=== PATIENT | female | born 2000 | race Caucasian/White ===

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

== ENCOUNTER 2019-08-12 14:25 | Observation (INO) | END 2019-08-12 15:50 | disposition home or self-care (01) | LOC: 1NENULAB | PROVIDERS: ADMIT Registered Nurse; ATTEND Registered Nurse ==

== ENCOUNTER → 2019-12-01 08:05 | Observation (INO) | END | disposition home or self-care (01) | LOC: 1NENULAB | PROVIDERS: ADMIT Obstetrics & Gynecology; ATTEND Obstetrics & Gynecology ==

== ENCOUNTER 2019-12-11 21:14 | Inpatient (IN) ==
[~2019-12-11 21:14] MED LIST changes: +*HR* FentaNYL (PF) 100 MCG/2 ML VIAL IVP PRN; -Betamethasone Acet/SodPhos 6 MG/ML MDV IM SCH; +Famotidine 20 MG/2 ML VIAL IVP PRN; +Lidocaine 1% 20 ML MDV INFILT PRN; +Metoclopramide 10 MG/2 ML VIAL IVP PRN; +Naloxone 0.4 MG/ML INJ IVP PRN; +Ondansetron 4 MG/2 ML VIAL IVP PRN; -Ringers Solution, Lactated 1,000 ML IVC SCH; +Ringers Solution, Lactated 1,000 ML ONE; -Ringers Solution, Lactated 500 ML IVC ONE
[2019-12-11] MEDS ORDERED: Ringers Solution, Lactated 1,000 ML IVC SCH (21:15)
[2019-12-11 21:31] LABS: Basophils % 0.3 %; Eosinophils # 0.3 K/mcL (0.0-0.6); Eosinophils % 2.3 %; Hematocrit 34.7 % (35.3-44.9); Hemoglobin 11.5 g/dL (11.5-15.4); Immature Granulocytes % 0.3 % (0-4); Lymphocytes # 2.1 K/mcL (0.6-4.6); Mean Corpuscular HGB Conc 33.1 g/dL (31.6-35.5); Mean Corpuscular Hemoglobin 29.7 pg (28.0-33.3); Mean Corpuscular Volume 89.7 fL (83.0-100.0); Mean Platelet Volume 9.7 fL (9.4-12.4); Monocytes # 0.9 K/mcL (0.0-1.3); Monocytes % 7.7 %; Neutrophils # 8.3 K/mcL (1.6-8.9); Platelet Count 335 K/mcL (140-400); Red Blood Count 3.87 M/mcL (3.82-4.97); Segmented Neutrophils % 71.4 %; White Blood Count 11.6 K/mcL (4.3-11.1)
[2019-12-11] MEDS ORDERED: Naloxone 0.4 MG/ML INJ IVP PRN (21:32)
[2019-12-11] MEDS ORDERED: Ondansetron 4 MG/2 ML VIAL IVP PRN (21:32)
[2019-12-11] MEDS ORDERED: EPHEDrine 50 MG/ML VIAL IVP PRN (21:32)
[2019-12-11] MEDS ORDERED: Ropivacaine/PF 0.2% 20 ML VIAL EP ONE (21:32)
[2019-12-11 21:40] LABS: Amphetamine Screen,Urine Negative ng/mL (Cutoff=1000); Barbiturate Screen,Urine Negative ng/mL (Cutoff=200); Benzodiazepines Screen,Urine Negative ng/mL (Cutoff=200); Cannabinoid Screen,Urine Negative ng/mL (Cutoff = 50); Cocaine Screen,Urine Negative ng/mL (Cutoff= 300); Opiate Screen,Urine Negative ng/mL (Cutoff=300); Phencyclidine Screen,Urine Negative ng/mL (Cutoff=25)
[2019-12-11] MEDS ORDERED: Epidural Premix (fent/bupiv) 110 ML EP SCH (21:45)
[2019-12-12] MEDS ORDERED: Oxytocin 20 units/ LR 1000 mL 20 UNIT/1,000 ML BAG IVC ONE (01:21)
[2019-12-12] MEDS ORDERED: Oxytocin 20 units/ LR 1000 mL 20 UNIT/1,000 ML BAG IVC SCH (04:32)
[2019-12-12] MEDS ORDERED: Benzocaine/Menthol 56 GM AEROSOL SPRAY TP PRN (04:32)
[2019-12-12] MEDS ORDERED: Acetaminophen 325 MG TABLET PO PRN (04:32)
[2019-12-12] MEDS ORDERED: Sennosides 8.6 MG TABLET PO PRN (04:32)
[2019-12-12] MEDS ORDERED: Lanolin 7 G OINT...G. TP PRN (04:32)
[2019-12-12] MEDS: Prenatal Vit/FA 1 EACH TABLET PO SCH (10:07)
[2019-12-12] MEDS: Ibuprofen 600 MG TABLET PO PRN ×2 (10:08→16:23)
[2019-12-13 07:46] VITALS: BP 101/57
[2019-12-13] MEDS: Ibuprofen 600 MG TABLET PO PRN (10:24)
[2019-12-13] MEDS: Prenatal Vit/FA 1 EACH TABLET PO SCH (10:24)
== END 2019-12-13 12:20 | disposition home or self-care (01) | DRG 560 ==
LOC: 1NENULAB → 1NENUOBS 12-12 05:00
PROVIDERS: ADMIT Advanced Practice Midwife; ATTEND Advanced Practice Midwife

== ENCOUNTER → 2021-10-09 18:01 | Observation (INO) ==
[2021-10-09 16:56] LABS: Bacteria,Urine Few per hpf (None-Few); Bilirubin,Urine Negative (Negative); Blood,Urine Negative (Negative); Clarity,Urine Turbid (Clear); Color,Urine Light-Yellow (Yellow); Glucose,Urine (UA) Normal (Normal); Ketones,Urine Negative (Negative); Leukocyte Esterase,Urine Negative (Negative); Mucus,Urine Few per lpf (None-Few); Nitrite,Urine Negative (Negative); PH,Urine 6.5 pH Units (5.0-8.0); Protein,Urine Trace mg/dL (Neg-Trace); RBC,Urine 0-3 per hpf (0-3); Specific Gravity,Urine 1.023 (1.010-1.025); Squamous Epithelial Cell,Urine Few per hpf (None-Few); Urobilinogen,Urine Normal (Normal); WBC,Urine 0-3 per hpf (0-3)
[2021-10-09 17:22] LABS: Basophils % 0.6 %; Eosinophils # 0.1 K/mcL (0.0-0.6); Hematocrit 31.6 % (35.3-44.9); Hemoglobin 10.6 g/dL (11.5-15.4); Immature Granulocytes % 0.2 % (0-4); Lymphocytes # 0.4 K/mcL (0.6-4.6); Lymphocytes % 7.5 %; Mean Corpuscular HGB Conc 33.5 g/dL (31.6-35.5); Mean Corpuscular Volume 86.3 fL (83.0-100.0); Mean Platelet Volume 9.3 fL (9.4-12.4); Monocytes # 0.3 K/mcL (0.0-1.3); Monocytes % 6.3 %; Neutrophils # 4.1 K/mcL (1.6-8.9); Platelet Count 266 K/mcL (140-400); Red Blood Count 3.66 M/mcL (3.82-4.97); Red Cell Distribution Width 13.3 % (11.5-14.5); Segmented Neutrophils % 83.4 %; White Blood Count 4.9 K/mcL (4.3-11.1)
[2021-10-09 17:41] LABS: BUN/Creatinine Ratio 13 (6-26); Blood Urea Nitrogen 7 mg/dL (6-20); Calcium 8.5 mg/dL (8.6-10.3); Carbon Dioxide 23 mEq/L (23-29); Chloride 100 mEq/L (98-107); Glucose 82 mg/dL (70-105); Osmolality,Calculated 269 (280-300); Potassium 3.5 mEq/L (3.5-5.1); Sodium 131 mEq/L (136-145); eGFR For African Americans > 60 (> 60); eGFR For Non-African Americans > 60 (> 60)
[~2021-10-09 18:01] MED LIST changes: -*HR* FentaNYL (PF) 100 MCG/2 ML VIAL IVP PRN; +Acetaminophen IV 1,000 MG/100 ML BAG IVPB ONE; -Famotidine 20 MG/2 ML VIAL IVP PRN; -Lidocaine 1% 20 ML MDV INFILT PRN; -Metoclopramide 10 MG/2 ML VIAL IVP PRN; -Naloxone 0.4 MG/ML INJ IVP PRN; -Ondansetron 4 MG/2 ML VIAL IVP PRN; +Ondansetron ODT 4 MG TAB.RAPDIS SL ONE; +Ringers Solution, Lactated 1,000 ML IVC ONE; -Ringers Solution, Lactated 1,000 ML ONE
[2021-10-09 18:22] LABS: Candida DNA Not Detected (Not Detect); Gardnerella DNA Not Detected (Not Detect); Trichomonas DNA Not Detected (Not Detect)
== END | disposition home or self-care (01) ==
LOC: 1NENULAB
PROVIDERS: ADMIT Advanced Practice Midwife; ATTEND Advanced Practice Midwife

== ENCOUNTER → 2021-12-22 18:25 | Observation (INO) ==
[2021-12-22] MEDS: Ringers Solution, Lactated 1,000 ML IVC SCH ×2 (10:10→12:08)
[2021-12-22 10:19] LABS: Basophils % 0.3 %; Eosinophils # 0.1 K/mcL (0.0-0.6); Eosinophils % 1.9 %; Hematocrit 28.7 % (35.3-44.9); Immature Granulocytes % 0.5 % (0-4); Lymphocytes # 1.4 K/mcL (0.6-4.6); Lymphocytes % 24.2 %; Mean Corpuscular HGB Conc 31.4 g/dL (31.6-35.5); Mean Corpuscular Hemoglobin 26.5 pg (28.0-33.3); Mean Corpuscular Volume 84.7 fL (83.0-100.0); Mean Platelet Volume 9.3 fL (9.4-12.4); Monocytes # 0.6 K/mcL (0.0-1.3); Monocytes % 9.8 %; Neutrophils # 3.7 K/mcL (1.6-8.9); Platelet Count 333 K/mcL (140-400); Red Blood Count 3.39 M/mcL (3.82-4.97); Red Cell Distribution Width 12.7 % (11.5-14.5); Segmented Neutrophils % 63.3 %; White Blood Count 5.8 K/mcL (4.3-11.1)
[2021-12-22 17:12] LABS: Amorphous Sediment,Urine Few per hpf (None-Few); Bacteria,Urine Few per hpf (None-Few); Bilirubin,Urine Negative (Negative); Blood,Urine Negative (Negative); Clarity,Urine Turbid (Clear); Color,Urine Yellow (Yellow); Glucose,Urine (UA) Normal (Normal); Ketones,Urine Negative (Negative); Leukocyte Esterase,Urine Trace (Negative); Mucus,Urine Many per lpf (None-Few); Nitrite,Urine Negative (Negative); PH,Urine 6.5 pH Units (5.0-8.0); Protein,Urine 30 mg/dL (Neg-Trace); RBC,Urine 0-3 per hpf (0-3); Specific Gravity,Urine 1.021 (1.010-1.025); Squamous Epithelial Cell,Urine Few per hpf (None-Few); Urobilinogen,Urine Normal (Normal)
[~2021-12-22 18:25] MED LIST changes: -Acetaminophen IV 1,000 MG/100 ML BAG IVPB ONE; +Betamethasone Acet/SodPhos 30 MG/5 ML VIAL IM SCH; +Indomethacin 25 MG CAPSULE PO ONE; -Ondansetron ODT 4 MG TAB.RAPDIS SL ONE; -Ringers Solution, Lactated 1,000 ML IVC ONE; +Ringers Solution, Lactated 1,000 ML IVC SCH
== END | disposition home or self-care (01) ==
LOC: 1NENULAB
PROVIDERS: ADMIT Registered Nurse; ATTEND Registered Nurse

== ENCOUNTER → 2021-12-23 14:30 | Observation (INO) ==
[~2021-12-23 14:30] MED LIST changes: -Indomethacin 25 MG CAPSULE PO ONE
== END | disposition home or self-care (01) ==
LOC: 1NENULAB
PROVIDERS: ADMIT Advanced Practice Midwife; ATTEND Advanced Practice Midwife

== ENCOUNTER → 2021-12-26 22:00 | Observation (INO) ==
[2021-12-26 20:17] LABS: Bilirubin,Urine Negative (Negative); Blood,Urine Negative (Negative); Clarity,Urine Clear (Clear); Color,Urine Colorless (Yellow); Glucose,Urine (UA) Normal (Normal); Ketones,Urine Negative (Negative); Leukocyte Esterase,Urine Negative (Negative); Nitrite,Urine Negative (Negative); Protein,Urine Negative (Neg-Trace); Specific Gravity,Urine < 1.005 (1.010-1.025); Urobilinogen,Urine Normal (Normal)
== END | disposition home or self-care (01) ==
LOC: 1NENULAB
PROVIDERS: ADMIT Registered Nurse; ATTEND Registered Nurse

== ENCOUNTER 2022-02-08 15:46 | Inpatient (IN) ==
[2022-02-08 12:18] LABS: Bacteria,Urine Few per hpf (None-Few); Bilirubin,Urine Negative (Negative); Blood,Urine Large (Negative); Clarity,Urine Turbid (Clear); Color,Urine Yellow (Yellow); Glucose,Urine (UA) Normal (Normal); Ketones,Urine Trace mg/dL (Negative); Leukocyte Esterase,Urine Large (Negative); Mucus,Urine Few per lpf (None-Few); Nitrite,Urine Negative (Negative); Protein,Urine 70 mg/dL (Neg-Trace); Squamous Epithelial Cell,Urine Moderate per hpf (None-Few); WBC,Urine 30-50 per hpf (0-3)
[2022-02-08 12:49] LABS: Basophils % 0.2 %; Eosinophils # 0.1 K/mcL (0.0-0.6); Eosinophils % 1.1 %; Hematocrit 37.4 % (35.3-44.9); Hemoglobin 12.1 g/dL (11.5-15.4); Immature Granulocytes % 0.4 % (0-4); Lymphocytes # 0.8 K/mcL (0.6-4.6); Lymphocytes % 13.5 %; Mean Corpuscular HGB Conc 32.4 g/dL (31.6-35.5); Mean Corpuscular Hemoglobin 27.9 pg (28.0-33.3); Mean Corpuscular Volume 86.4 fL (83.0-100.0); Monocytes # 0.5 K/mcL (0.0-1.3); Monocytes % 7.9 %; Neutrophils # 4.4 K/mcL (1.6-8.9); Platelet Count 298 K/mcL (140-400); Red Blood Count 4.33 M/mcL (3.82-4.97); Red Cell Distribution Width 19.4 % (11.5-14.5); Segmented Neutrophils % 76.9 %; White Blood Count 5.7 K/mcL (4.3-11.1)
[~2022-02-08 15:46] MED LIST changes: +*HR* Nalbuphine 10 MG/ML AMPUL IV PRN; -Betamethasone Acet/SodPhos 30 MG/5 ML VIAL IM SCH; +Famotidine 20 MG/2 ML VIAL IVP PRN; +Lidocaine 1% 20 ML MDV INFILT PRN; +Metoclopramide 10 MG/2 ML VIAL IVP PRN; +Naloxone 0.4 MG/ML INJ IVP PRN; +Ondansetron 4 MG/2 ML VIAL IVP PRN; +Oxytocin 30 UNIT/503 ML BAG IVC SCH; +Ringers Solution, Lactated 1,000 ML IVC ONE; -Ringers Solution, Lactated 1,000 ML IVC SCH; +Ringers Solution, Lactated 1,000 ML ONE
[2022-02-08] MEDS ORDERED: EPHEDrine sulfate 50 MG/10 ML VIAL IVP PRN (16:12)
[2022-02-08] MEDS ORDERED: Epidural Premix (fent/bupiv) 110 ML EP SCH (16:15)
[2022-02-08] MEDS: Ringers Solution, Lactated 1,000 ML IVC SCH ×2 (16:36→18:31)
[2022-02-08 18:20] LABS: Amphetamine Screen,Urine Negative ng/mL (Cutoff=1000); Barbiturate Screen,Urine Negative ng/mL (Cutoff=200); Benzodiazepines Screen,Urine Negative ng/mL (Cutoff=200); Cannabinoid Screen,Urine Negative ng/mL (Cutoff = 50); Cocaine Screen,Urine Negative ng/mL (Cutoff= 300); Opiate Screen,Urine Negative ng/mL (Cutoff=300); Phencyclidine Screen,Urine Negative ng/mL (Cutoff=25)
[2022-02-08] MEDS ORDERED: Oxytocin 30 UNIT/503 ML BAG IVC SCH (21:51)
[2022-02-08] MEDS ORDERED: OXYTOCIN/RINGERS LACTATE 10 UNIT/166.6 ML BAG IVC ONE (21:51)
[2022-02-08] MEDS ORDERED: Benzocaine/Menthol 56 GM AEROSOL SPRAY TP PRN (21:51)
[2022-02-08] MEDS ORDERED: Lanolin 7 G OINT...G. TP PRN (21:51)
[2022-02-08] MEDS ORDERED: Ondansetron ODT 4 MG TAB.RAPDIS SL PRN (21:51)
[2022-02-08] MEDS: Acetaminophen 325 MG TABLET PO SCH (22:01)
[2022-02-09] MEDS: Ibuprofen 600 MG TABLET PO SCH ×4 (07:46→18:10)
[2022-02-09] MEDS: Acetaminophen 325 MG TABLET PO SCH ×3 (08:21→18:10)
[2022-02-09 08:25] VITALS: BP 81/48; PULSE 79; TEMP 98; O2SAT 97
[2022-02-09] MEDS ORDERED: Prenatal Vit/FA 1 EACH TABLET PO SCH (09:00)
== END 2022-02-09 19:19 | disposition home or self-care (01) | DRG 560 ==
LOC: 1NENULAB → 1NENUOBS 21:54
PROVIDERS: ADMIT Advanced Practice Midwife; ATTEND Advanced Practice Midwife